=== PATIENT | female | born 1990 | race Caucasian/White ===

== ENCOUNTER 2019-08-02 21:08 | Emergency (ER) | payer OTHER ==
[~2019-08-02] VITALS: Ht 180.3 cm; Wt 127.9 kg
[2019-08-02 21:16] VITALS: Ht 180.3 cm; Wt 127.9 kg
[2019-08-02 22:14] VITALS: BP 130/86
== END 2019-08-02 22:14 | disposition home or self-care (01) ==
LOC: ED 21:08
DX: J06.9 Acute upper respiratory infection, unspecified (principal)